=== PATIENT | female | born 1990 | race Caucasian/White ===

== ENCOUNTER 2017-03-12 14:47 | Emergency (ER) | payer SELFPAY ==
[~2017-03-12] VITALS: Ht 160 cm; Wt 68.6 kg
[2017-03-12 14:52] VITALS: BP 141/82
== END 2017-03-12 16:31 | disposition home or self-care (01) ==
LOC: ED 14:47
DX: S51.831A Puncture wound without foreign body of right forearm, initial encounter (principal); S61.431A Puncture wound without foreign body of right hand, initial encounter; W54.0XXA Bitten by dog, initial encounter; Y93.89 Activity, other specified; Y92.89 Other specified places as the place of occurrence of the external cause; Y99.8 Other external cause status

== ENCOUNTER 2017-03-14 20:34 | Emergency (ER) | payer SELFPAY ==
[2017-03-14 22:22] VITALS: BP 110/86
== END 2017-03-14 22:22 | disposition home or self-care (01) ==
LOC: ED 20:34
DX: S51.851D Open bite of right forearm, subsequent encounter (principal); W54.0XXD Bitten by dog, subsequent encounter

== ENCOUNTER 2017-12-04 05:58 | Emergency (ER) | payer SELFPAY ==
[~2017-12-04] VITALS: Ht 162.6 cm; Wt 74.2 kg
[2017-12-04 06:03] VITALS: Ht 162.6 cm; Wt 74.2 kg
[2017-12-04 06:33] VITALS: BP 121/74
== END 2017-12-04 08:55 | disposition home or self-care (01) ==
LOC: ED 05:58
DX: S00.511A Abrasion of lip, initial encounter (principal); S40.211A Abrasion of right shoulder, initial encounter; S60.512A Abrasion of left hand, initial encounter; S60.511A Abrasion of right hand, initial encounter; S80.212A Abrasion, left knee, initial encounter; Y93.73 Activity, racquet and hand sports; Y92.488 Other paved roadways as the place of occurrence of the external cause; Y99.8 Other external cause status
CPT/HCPCS: J1885; J3010; Q0162

== ENCOUNTER 2018-08-15 16:27 | Emergency (ER) | payer SELFPAY ==
[2018-08-15 16:36] VITALS: Ht 162.6 cm
[2018-08-15 18:07] VITALS: BP 126/78
== END 2018-08-15 18:33 | disposition home or self-care (01) ==
LOC: ED 16:27
DX: N39.0 Urinary tract infection, site not specified (principal); Z20.2 Contact with and (suspected) exposure to infections with a predominantly sexual mode of transmission
CPT/HCPCS: 87491; 87591; J0696